=== PATIENT | male | born 1965 | race Caucasian/White ===

== ENCOUNTER 2017-05-19 22:55 | Emergency (ER) | payer MEDICARE ==
[2017-05-19 23:07] VITALS: BP 141/78; PULSE 92; O2SAT 95
[2017-05-19] MEDS ORDERED: CLEOCIN 150 MG CAPSULE PO ONE ×2 (23:15→23:18)
[2017-05-19] MEDS ORDERED: TYLENOL 325 MG PO ONE (23:17)
--- NOTE | 2017-05-19 23:17 | ERPHSYRPT ---
- History of Present Illness Time Seen by Provider: 05/19/17 23:04 Source: patient Exam Limitations: no limitations Patient Subjective Stated Complaint: states having an area to left inner thigh, today worsened and harder to walk Triage Nursing Assessment: area to left inner thigh, swollen, red and painful to walk on it Physician History: PT HAS HAD AN AREA ON THE LEFT UPPER INNER THIGH FOR ABOUT 4 YEARS THAT HAD A SMALL AREA OF EXTRA SKIN WHICH DISAPPEARED. ABOUT 6 HOURS AGO PT NOTICED THE AREA PAINFUL AND MILDLY ERYTHEMATOUS. PT DENIES FEVER, RECENT TRAUMA, NAUSEA, CHILLS. Allergies/Adverse Reactions: No Known Drug Allergies Allergy (Verified 02/06/16 15:47) Home Medications: Aspirin 81 gm Chew [Baby Aspirin 81 mg Chew] 81 mg PO DAILY 09/04/13 [ History] Clopidogrel Bisulfate 75 mg [PLAVIX 75 MG Tablet] 75 mg PO DAILY 09/04/13 [History] Niacin 500 mg [Niaspan 500 mg] 500 mg PO DAILY 09/04/13 [History] Nitroglycerin 0.4 mg Tablet [Nitrostat 0.4 MG Tablet] 0.4 mg SL UD PRN 11/13 [History] Alprazolam [Xanax 0.5 mg] 1 mg PO TID 11/25/13 [History] Simvastatin 40 mg [Zocor 40 mg] 40 mg PO HS 12/10/13 [History] Spironolactone 25 mg [Aldactone 25 MG] 25 mg PO DAILY 12/10/13 [History] Carvedilol [Coreg] 25 mg PO BID 01/21/14 [History] Fenofibrate,Micronized 145 mg* [Tricor 145 MG] 145 mg PO DAILY 01/21/14 [ History] Hydrocodone Bit/Acetaminophen [Hydrocodon-Acetaminoph 7.5-325] 1 tab PO TID 09/15 [History] Lisinopril 10 mg [Zestril 10 MG] 10 mg PO DAILY 11/03/15 [History] Multivitamin/Iron/Folic Acid [Certavite-Antioxidant Tablet] 1 tab PO BID [History] Oxycodone HCl/Acetaminophen [Percocet 7.5-325 mg Tablet] 1 each PO Q6H PRN PRN 02/06/16 [History] Hx Tetanus, Diphtheria Vaccination/Date Given: Yes Hx Influenza Vaccination/Date Given: No Hx Pneumococcal Vaccination/Date Given: No Immunizations Up to Date: Yes - Review of Systems Constitutional: No Fever, No Chills Abdominal/Gastrointestinal: No Nausea Musculoskeletal: Other (PAINFUL AREA ON LEFT UPPER INNER THIGH.) All Other Systems: Reviewed and Negative - Past Medical History Pertinent Past Medical History: Yes Neurological History: No Pertinent History ENT History: No Pertinent History Cardiac History: Congestive Heart Failure, Coronary Artery Disease, Hypertension , Myocardial Infarction ([place]), Other Respiratory History: CHF Endocrine Medical History: No Pertinent History Musculoskeletal History: No Pertinent History GI Medical History: GI Bleed, Pancreatitis History: Dialysis, Renal Disease, Other Psycho-Social History: Anxiety Male Reproductive Disorders: No Pertinent History Other Medical History: stage III kidney disease ;PACEMAKER ET DIFIBRILATOR PLACED IN 2008 - Past Surgical History Past Surgical History: Yes Neuro Surgical History: No Pertinent History Cardiac: Cardiac Catheterization, Internal Defibrillator, Pacemaker Respiratory: No Pertinent History Gastrointestinal: No Pertinent History Genitourinary: No Pertinent History Musculoskeletal: No Pertinent History Male Surgical History: No Pertinent History Other Surgical History: heart cath - Social History Smoking Status: Current every day smoker How long have you smoked: 12 years Exposure to second hand smoke: Yes Alcohol Use: Socially Drug Use: none Patient Lives Alone: No Significant Family History: no pertinent family hx, heart disease - Nursing Vital Signs Nursing Vital Signs: Initial Vital Signs Temperature 98.3 F 05/19/17 23:01 Pulse Rate 92 H 05/19/17 23:01 Respiratory Rate 20 05/19/17 23:01 Blood Pressure 141/78 05/19/17 23:01 O2 Sat by Pulse Oximetry 95 05/19/17 23:01 Pain Scale Pain Intensity 9 - Physical Exam General Appearance: alert Eye Exam: PERRL/EOMI Ears, Nose, Throat Exam: pharynx normal, moist mucous membranes Neck Exam: normal inspection Respiratory Exam: lungs clear Cardiovascular Exam: normal heart sounds Gastrointestinal/Abdomen Exam: soft, normal bowel sounds Male Genitalia Exam: No hernia, No testicular tenderness Back Exam: normal range of motion Extremity Exam: other (~ 2 CM FAINTLY ERYTHEMATOUS MILDLY TENDER AREA OVER LEFT UPPER INNER THIGH WITHOUT FLUCTUATION.), No pedal edema Neurologic Exam: alert, cooperative SpO2 Interpretation: normal SpO2: 95 Oxygen Delivery: Room Air - Course Nursing assessment & vital signs reviewed: Yes Ordered Tests: Medication Summary Discontinued Medications Generic Name Dose Route Start Last Admin Trade Name Beniq PRN Reason Stop Dose Admin Acetaminophen 650 mg 05/19/17 23:17 Tylenol 325 Mg PO 05/19/17 23:18 STAT ONE Clindamycin HCl 300 mg 05/19/17 23:15 Cleocin 150 Mg Capsule PO 05/19/17 23:16 STAT ONE Clindamycin HCl 300 mg 05/19/17 23:18 Cleocin 150 Mg Capsule PO 05/19/17 23:19 STAT ONE - Departure Time of Disposition: 23:34 Departure Disposition: Home Clinical Impression: MILD CELLULITIS OF LEFT THIGH Condition: Stable Critical Care Time: No Referrals: EULALIO ALLRED MD [Primary Care Provider] - Instructions: Cellulitis -- Adult Additional Instructions: FOLLOW UP WITH PRIVATE DOCTOR TOMORROW. Prescriptions: Clindamycin HCl 300 mg PO Q6H #40 capsule
[2017-05-19] MEDS ORDERED: TYLENOL 325 MG ONE (23:22)
[2017-05-19] MEDS ORDERED: CLEOCIN 150 MG CAPSULE ONE (23:22)
== END 2017-05-19 23:47 | disposition home or self-care (01) ==
LOC: ED 22:55
DX: L03.116 Cellulitis of left lower limb (principal); Z79.899 Other long term (current) drug therapy; Z79.891 Long term (current) use of opiate analgesic
CPT/HCPCS: 99283; A9270-GY

== ENCOUNTER 2017-10-03 23:46 | Inpatient (IN) | payer MEDICARE ==
[2017-10-04] MEDS ORDERED: PROTONIX 40 MG IV IV ONE ×2 (00:24→00:39)
--- NOTE | 2017-10-04 00:38 | ERPHSYRPT ---
- History of Present Illness Time Seen by Provider: 10/04/17 00:15 Historian: patient Exam Limitations: clinical condition Patient Subjective Stated Complaint: abdominal pain started 2 days ago.. was drinking over spring. denies n/v/d Triage Nursing Assessment: aleert and oriented. pain in upper abdomen. staes he knows its his pancreas. has been drinking over spring. tender on palpation. denies N/V/D has not been eating food but able to drink fluids. Physician History: PATIENT WITH A HISTORY OF CORONARY ARTERY DISEASE, HYPERTENSION, STAGE 3 RENAL DISEASE, REQUIRING DIALYSIS FOR SHORT PERIOD OF TIME, PACEMAKER, DIFIBRILLATOR , CHRONIC PANCREATITIS, ALCOHOL ABUSE, DRINKING OVER spring AND COMPLAINS OF EPIGASTRIC PAINS FOR 2 DAYS. DENIES NAUSEA, EMESIS,DIARRHEA, FEVER OR COUGH. Timing/Duration: day(s) Activities at Onset: none Quality: sharpness Abdominal Pain Onset Location: epigastric Pain Radiation: back Severity of Pain-Max: moderate Severity of Pain-Current: moderate Modifying Factors: Improves With: position Associated Symptoms: loss of appetite Previous symptoms: same symptoms as today Allergies/Adverse Reactions: No Known Drug Allergies Allergy (Verified 10/04/17 00:22) Home Medications: Aspirin 81 gm Chew [Baby Aspirin 81 mg Chew] 81 mg PO DAILY 09/04/13 [ History] Clopidogrel Bisulfate 75 mg [PLAVIX 75 MG Tablet] 75 mg PO DAILY 09/04/13 [History] Niacin 500 mg [Niaspan 500 mg] 500 mg PO DAILY 09/04/13 [History] Nitroglycerin 0.4 mg Tablet [Nitrostat 0.4 MG Tablet] 0.4 mg SL UD PRN 11/13 [History] Alprazolam [Xanax 0.5 mg] 1 mg PO TID 11/25/13 [History] Simvastatin 40 mg [Zocor 40 mg] 40 mg PO HS 12/10/13 [History] Spironolactone 25 mg [Aldactone 25 MG] 25 mg PO DAILY 12/10/13 [History] Carvedilol [Coreg] 25 mg PO BID 01/21/14 [History] Fenofibrate,Micronized 145 mg* [Tricor 145 MG] 145 mg PO DAILY 01/21/14 [ History] Hydrocodone Bit/Acetaminophen [Hydrocodon-Acetaminoph 7.5-325] 1 tab PO TID 09/15 [History] Lisinopril 10 mg [Zestril 10 MG] 10 mg PO DAILY 11/03/15 [History] Multivitamin/Iron/Folic Acid [Certavite-Antioxidant Tablet] 1 tab PO BID [History] Oxycodone HCl/Acetaminophen [Percocet 7.5-325 mg Tablet] 1 each PO Q6H PRN PRN 02/06/16 [History] Hx Tetanus, Diphtheria Vaccination/Date Given: Yes Hx Influenza Vaccination/Date Given: No Hx Pneumococcal Vaccination/Date Given: No - Review of Systems Constitutional: No Fever, No Chills Eyes: No Symptoms Ears, Nose, & Throat: No Symptoms Respiratory: No Symptoms, No Cough, No Dyspnea Cardiac: No Chest Pain, No Edema, No Syncope Abdominal/Gastrointestinal: Abdominal Pain, No Nausea, No Vomiting, No Diarrhea Genitourinary Symptoms: No Symptoms, No Dysuria Musculoskeletal: No Symptoms, No Back Pain, No Neck Pain Skin: No Rash Neurological: No Dizziness, No Focal Weakness, No Sensory Changes Psychological: No Symptoms Endocrine: No Symptoms All Other Systems: Reviewed and Negative - Past Medical History Pertinent Past Medical History: Yes Neurological History: No Pertinent History ENT History: No Pertinent History Cardiac History: Congestive Heart Failure, Coronary Artery Disease, Hypertension , Myocardial Infarction ([place]), Other Respiratory History: CHF Endocrine Medical History: No Pertinent History Musculoskeletal History: No Pertinent History GI Medical History: GI Bleed, Pancreatitis History: Dialysis, Renal Disease, Other Psycho-Social History: Anxiety Male Reproductive Disorders: No Pertinent History Other Medical History: stage III kidney disease ;PACEMAKER ET DIFIBRILATOR PLACED IN 2008 - Past Surgical History Past Surgical History: Yes Neuro Surgical History: No Pertinent History Cardiac: Cardiac Catheterization, Internal Defibrillator, Pacemaker Respiratory: No Pertinent History Gastrointestinal: No Pertinent History Genitourinary: No Pertinent History Musculoskeletal: No Pertinent History Male Surgical History: No Pertinent History Other Surgical History: heart cath - Social History Smoking Status: Current every day smoker How long have you smoked: 12 years Exposure to second hand smoke: Yes Alcohol Use: Socially Drug Use: none Patient Lives Alone: No Significant Family History: no pertinent family hx, heart disease - Nursing Vital Signs Nursing Vital Signs: Initial Vital Signs Temperature 98.1 F 10/04/17 00:10 Pulse Rate 67 10/04/17 00:10 Respiratory Rate 18 10/04/17 00:10 Blood Pressure 95/69 10/04/17 00:10 O2 Sat by Pulse Oximetry 95 10/04/17 00:10 Pain Scale Pain Intensity 7 - Physical Exam SpO2: 95 Oxygen Delivery: Room Air - CT Exams Abdomen/Pelvis CT Interpretation: Tele-radiologist Report (THERE IS A 2.4CM CYSTIC LESION WITHIN THE PANCREATIC TAIL COULD REPRESENT MASS VS PSEUDOCYST) Ordered Tests: Active Orders 24 hr Category Date Time Status Up Ad Venita ROUTINE Activity 10/04/17 02:59 Ordered Call Admit Doctor for Orders ON ADMISSION Care 10/04/17 02:58 Ordered Code Status Order ROUTINE Care 10/04/17 02:56 Ordered IV Care Q6H Care 10/04/17 02:56 Ordered IV Insertion STAT Care 10/04/17 00:[address] in Observation ROUTINE Care 10/04/17 02:56 Ordered Vital Signs Q4H Care 10/04/17 02:56 Ordered NPO except Meds Diet 10/04/17 02:58 Ordered ABDOMEN AND PELVIS W/0 CONTRAS [CT] Stat Exams 10/04/17 00:25 Taken AMYLASE Stat Lab 10/04/17 00:40 Completed CBC W DIFF Stat Lab 10/04/17 00:40 Completed CMP Stat Lab 10/04/17 00:40 Completed ETHYL ALCOHOL Stat Lab 10/04/17 00:40 Completed LIPASE Stat Lab 10/04/17 00:40 Completed UA W/RFX UR CULTURE Stat Lab 10/04/17 00:40 Completed Urine Triage Profile Stat Lab 10/04/17 00:40 Completed Pulse Oximetry CONTINUOUS RT 10/04/17 02:59 Ordered Transfer Order Routine Transfer 10/04/17 Ordered Medication Summary Generic Name Dose Route Start Last Admin Trade Name Freq PRN Reason Stop Dose Admin Sodium Chloride 1,000 mls @ 100 mls/hr 10/04/17 00:30 10/04/17 00:41 Sodium Chloride 0.9% 1000 Ml IV 11/03/17 00:29 100 mls/hr .Q10H DARREL Administration Discontinued Medications Generic Name Dose Route Start Last Admin Trade Name Freq PRN Reason Stop Dose Admin Morphine Sulfate 8 mg 10/04/17 01:05 10/04/17 01:30 Morphine Sulfate 10 Mg/Ml IV 10/04/17 01:06 8 mg STAT ONE Administration Morphine Sulfate Confirm 10/04/17 01:27 Morphine Sulfate 4 Mg Inj Administered 10/04/17 01:28 Dose 8 mg .ROUTE .STK-MED ONE Ondansetron HCl 4 mg 10/04/17 01:05 10/04/17 01:32 Zofran 4 Mg/2 Ml Vial IV 10/04/17 01:06 4 mg STAT ONE Administration Ondansetron HCl Confirm 10/04/17 01:32 Zofran 4 Mg/2 Ml Vial Administered 10/04/17 01:33 Dose 4 mg .ROUTE .STK-MED ONE Pantoprazole Sodium 40 mg 10/04/17 00:24 10/04/17 00:41 Protonix 40 Mg Iv IV 10/04/17 00:25 40 mg STAT ONE Administration Pantoprazole Sodium Confirm 10/04/17 00:39 Protonix 40 Mg Iv Administered 10/04/17 00:40 Dose 40 mg IV .STK-MED ONE Lab/Rad Data: Laboratory Result Diagrams 10/04/17 00:40 10/04/17 00:40 Laboratory Results 10/04/17 10/04/17 10/04/17 Range/Units 00:40 00:40 00:40 WBC (4.0-10.5) K/mm3 RBC (4.1-5.6) M/mm3 Hgb (12.5-18.0) gm/dl Hct (42-50) % MCV (78-100) fl MCH (26-32) pg MCHC (32-36) g/dl RDW (11.5-14.0) % Plt Count (150-450) K/mm3 MPV (6-9.5) fl Gran % (36.0-66.0) % Eos # (Auto) (0-0.5) Absolute Lymphs (auto) (1.0-4.6) Absolute Monos (auto) (0.0-1.3) Lymphocytes % (24.0-44.0) % Monocytes % (0.0-12.0) % Eosinophils % (0.00-5.0) % Basophils % (0.0-0.4) % Absolute Granulocytes (1.4-6.9) Basophils # (0-0.4) Sodium 138 (137-145) mmol/L Potassium 3.7 (3.5-5.1) mmol/L Chloride 101 (98-107) mmol/L Carbon Dioxide 25 (22-30) mmol/L Anion Gap 15.6 H (5-15) MEQ/L BUN 4 L (9-20) mg/dL Creatinine 0.74 (0.66-1.25) mg/dL Estimated GFR > 60.0 ML/MIN Glucose 146 H (74-106) mg/dL Calcium 9.8 (8.4-10.2) mg/dL Total Bilirubin 0.90 (0.2-1.3) mg/dL AST 26 (17-59) U/L ALT 26 (0-50) U/L Alkaline Phosphatase 83 (38-126) U/L Serum Total Protein 7.9 (6.3-8.2) g/dL Albumin 4.5 (3.5-5.0) g/dL Amylase 55 (30-110) U/L Lipase 43 (23-300) U/L Ur Collection Type CLEAN CATCH Urine Color YELLOW (YELLOW) Urine Appearance CLEAR (CLEAR) Urine pH 5.0 (5-6) Ur Specific [place] 1.010 (1.005-1.025) Urine Protein NEGATIVE (Negative) Urine Ketones NEGATIVE (NEGATIVE) Urine Blood NEGATIVE (0-5) [place]/ul Urine Nitrite NEGATIVE (NEGATIVE) Urine Bilirubin NEGATIVE (NEGATIVE) Urine Urobilinogen NORMAL (0-1) mg/dL Ur Leukocyte Esterase NEGATIVE (NEGATIVE) Urine Culture Reflexed NO (NO) Urine Glucose NEGATIVE (NEGATIVE) mg/dL Urine Opiates Level (NEGATIVE) Ur Methadone (NEGATIVE) Urine Barbiturates (NEGATIVE) Ur Phencyclidine (PCP) (NEGATIVE) Urine Amphetamine (NEGATIVE) U Benzodiazepine Level (NEGATIVE) Urine Cocaine (NEGATIVE) Urine Marijuana (THC) (NEGATIVE) Ethyl Alcohol < 10 H (0-9) mg/dL Specimen Received 10/04/17 0040 10/04/17 10/04/17 Range/Units 00:40 00:40 WBC 8.9 (4.0-10.5) K/mm3 RBC 4.43 (4.1-5.6) M/mm3 Hgb 14.6 (12.5-18.0) gm/dl Hct 43.5 (42-50) % MCV 98.2 (78-100) fl MCH 33.0 H (26-32) pg MCHC 33.6 (32-36) g/dl RDW 12.9 (11.5-14.0) % Plt Count 113 L (150-450) K/mm3 MPV 11.2 H (6-9.5) fl Gran % 61.5 (36.0-66.0) % Eos # (Auto) 0.26 (0-0.5) Absolute Lymphs (auto) 2.13 (1.0-4.6) Absolute Monos (auto) 1.01 (0.0-1.3) Lymphocytes % 23.9 L (24.0-44.0) % Monocytes % 11.3 (0.0-12.0) % Eosinophils % 2.9 (0.00-5.0) % Basophils % 0.4 (0.0-0.4) % Absolute Granulocytes 5.49 (1.4-6.9) Basophils # 0.04 (0-0.4) Sodium (137-145) mmol/L Potassium (3.5-5.1) mmol/L Chloride (98-107) mmol/L Carbon Dioxide (22-30) mmol/L Anion Gap (5-15) MEQ/L BUN (9-20) mg/dL Creatinine (0.66-1.25) mg/dL Estimated GFR ML/MIN Glucose (74-106) mg/dL Calcium (8.4-10.2) mg/dL Total Bilirubin (0.2-1.3) mg/dL AST (17-59) U/L ALT (0-50) U/L Alkaline Phosphatase (38-126) U/L Serum Total Protein (6.3-8.2) g/dL Albumin (3.5-5.0) g/dL Amylase (30-110) U/L Lipase (23-300) U/L Ur Collection Type Urine Color (YELLOW) Urine Appearance (CLEAR) Urine pH (5-6) Ur Specific [place] (1.005-1.025) Urine Protein (Negative) Urine Ketones (NEGATIVE) Urine Blood (0-5) [place]/ul Urine Nitrite (NEGATIVE) Urine Bilirubin (NEGATIVE) Urine Urobilinogen (0-1) mg/dL Ur Leukocyte Esterase (NEGATIVE) Urine Culture Reflexed (NO) Urine Glucose (NEGATIVE) mg/dL Urine Opiates Level POSITIVE (NEGATIVE) Ur Methadone NEGATIVE (NEGATIVE) Urine Barbiturates NEGATIVE (NEGATIVE) Ur Phencyclidine (PCP) NEGATIVE (NEGATIVE) Urine Amphetamine NEGATIVE (NEGATIVE) U Benzodiazepine Level POSITIVE (NEGATIVE) Urine Cocaine NEGATIVE (NEGATIVE) Urine Marijuana (THC) NEGATIVE (NEGATIVE) Ethyl Alcohol (0-9) mg/dL Specimen Received - Progress Progress Note: 10/04/17 00:40 IV NORMAL SALINE 100MG/HR, PROTONIX 40MG IV, ZOFRAN 4MG, MORPHINE 8 MG IV, 10/04/17 02:54 Discussed with : Lenny (DISCUSSED WITH DR ALLRED AT 0245 FOR OBSERVATION) - Departure Time of Disposition: 03:00 Departure Disposition: Observation Clinical Impression: ACUTE EXACERBATION CHRONIC PANCREATITIS Condition: Stable Critical Care Time: No Referrals: EULALIO ALLRED MD [Primary Care Provider] -
[2017-10-04] MEDS: Sodium Chloride 0.9% 1000 ML 1,000 ML IV SCH ×2 (00:41→04:37)
[2017-10-04 00:52] LABS: BASOPHIL % 0.4 % (0.0-0.4); Basophil (Absolute #) 0.04 (0-0.4); Eosinophil % 2.9 % (0.00-5.0); Eosinophil (Absolute #) 0.26 (0-0.5); Granulocyte Absolute (ANC) 5.49 (1.4-6.9); Granulocytes % 61.5 % (36.0-66.0); Hematocrit 43.5 % (42-50); Hemoglobin 14.6 gm/dl (12.5-18.0); Lymphocyte (Absolute #) 2.13 (1.0-4.6); Lymphocytes % 23.9 % (24.0-44.0); Mean Cell Volume 98.2 fl (78-100); Mean Corpuscular Hgb Concent. 33.6 g/dl (32-36); Mean Platelet Volume 11.2 fl (6-9.5); Monocyte (Absolute #) 1.01 (0.0-1.3); Monocytes % 11.3 % (0.0-12.0); Platelet Count 113 K/mm3 (150-450); Red Blood Count 4.43 M/mm3 (4.1-5.6); Red Cell Distribution Width 12.9 % (11.5-14.0); White Blood Count 8.9 K/mm3 (4.0-10.5)
[2017-10-04 00:59] LABS: Appearance CLEAR (CLEAR)
[2017-10-04 01:00] LABS: Bilirubin NEGATIVE (NEGATIVE); Blood NEGATIVE Ery/ul (0-5); Glucose NEGATIVE (NEGATIVE); Ketones NEGATIVE (NEGATIVE); Leukocyte Esterase NEGATIVE (NEGATIVE); Nitrite NEGATIVE (NEGATIVE); Protein,Urine Dip NEGATIVE (Negative); Urobilinogen NORMAL mg/dL (0-1)
[2017-10-04] MEDS ORDERED: MORPHINE SULFATE 10 MG/ML IV ONE (01:05)
[2017-10-04] MEDS ORDERED: Zofran 4 MG/2 ML VIAL IV ONE (01:05)
[2017-10-04 01:09] LABS: ALBUMIN 4.5 g/dL (3.5-5.0); ALKALINE PHOSPHATASE 83 U/L (38-126); AMYLASE 55 U/L (30-110); ANION GAP 15.6 MEQ/L (5-15); BLOOD UREA NITROGEN 4 mg/dL (9-20); CHLORIDE 101 mmol/L (98-107); Calcium 9.8 mg/dL (8.4-10.2); Carbon Dioxide 25 mmol/L (22-30); Creatinine 1 0.74 mg/dL (0.66-1.25); Glucose 146 mg/dL (74-106); LIPASE 43 U/L (23-300); Potassium 3.7 mmol/L (3.5-5.1); SGOT/AST 26 U/L (17-59); SGPT/ALT 26 U/L (0-50); SODIUM 138 mmol/L (137-145); Total Protein 7.9 g/dL (6.3-8.2)
[2017-10-04 01:11] LABS: Amphetamine,Urine NEGATIVE (NEGATIVE); Barbiturate,Urine NEGATIVE (NEGATIVE); Benzodiazepine,Urine POSITIVE (NEGATIVE); Cocaine,Urine NEGATIVE (NEGATIVE); Methadone,Urine NEGATIVE (NEGATIVE); Opiate,Urine POSITIVE (NEGATIVE); PCP,Urine NEGATIVE (NEGATIVE); THC,Urine NEGATIVE (NEGATIVE)
[2017-10-04] MEDS ORDERED: MORPHINE SULFATE 4 MG INJ ONE (01:27)
[2017-10-04] MEDS ORDERED: Zofran 4 MG/2 ML VIAL ONE (01:32)
[2017-10-04] MEDS ORDERED: TYLENOL 325 MG PO PRN (02:56)
[2017-10-04] MEDS ORDERED: Zofran 4 MG/2 ML VIAL IV PRN (02:56)
[2017-10-04] MEDS ORDERED: DILAUDID 2 MG INJECTION IV PRN (02:56)
[2017-10-04] MEDS ORDERED: Nitrostat 0.4 MG Tablet SL PRN (03:01)
[2017-10-04] MEDS ORDERED: NORCO 7.5/325 MG TAB PO PRN (03:06)
--- NOTE | 2017-10-04 09:12 | PCM.HP ---
History of Present Illness - Chief Complaint Chief Complaint: Acute Ex. Chronic Pancreatitis History of Present Illness: is a 52 year old male with recurrent/chronic pancreatitis secondary to alcohol intake. He has been advised to abstain from alcohol and normally does but a week and a half ago was with his uncle and drank alcohol even though he knew he shouldn't. Two night ago he developed familiar sharp stabbing epigastric pain with nausea but no vomiting. He has tried to be on a liquid diet at home but the pain became intolerable, in the ER he has inflammation in the tail of the pancreas with a 2.2cm cyst that is new, enzymes are normal. - Review of Systems Constitutional: No Fever, No Chills Respiratory: No Cough, No Short Of Breath Cardiac: No Chest Pain, No Edema, No Syncope Abdominal/Gastrointestinal: Abdominal Pain, Nausea, No Vomiting, No Hematochezia , No Melena Genitourinary Symptoms: No Dysuria Skin: No Rash Neurological: No Dizziness, No Focal Weakness, No Sensory Changes Psychological: Alcohol Abuse All Other Systems: Reviewed and Negative Medications & Allergies Home Medications: Home Medication List Aspirin 81 gm Chew [Baby Aspirin 81 mg Chew] 81 mg PO DAILY 09/04/13 [ History Confirmed 10/04/17] Clopidogrel Bisulfate 75 mg [PLAVIX 75 MG Tablet] 75 mg PO DAILY 09/04/13 [History Confirmed 10/04/17] Niacin 500 mg [Niaspan 500 mg] 500 mg PO DAILY 09/04/13 [History Confirmed 10/04/17] Nitroglycerin 0.4 mg Tablet [Nitrostat 0.4 MG Tablet] 0.4 mg SL UD PRN 11/13 [History Confirmed 10/04/17] Alprazolam [Xanax 0.5 mg] 1 mg PO TID 11/25/13 [History Confirmed 10/04/17] Simvastatin 40 mg [Zocor 40 mg] 40 mg PO HS 12/10/13 [History Confirmed 10/04/17 ] Spironolactone 25 mg [Aldactone 25 MG] 25 mg PO DAILY 12/10/13 [History Confirmed 10/04/17] Carvedilol [Coreg] 25 mg PO BID 01/21/14 [History Confirmed 10/04/17] Fenofibrate,Micronized 145 mg* [Tricor 145 MG] 145 mg PO DAILY 01/21/14 [ History Confirmed 10/04/17] Hydrocodone Bit/Acetaminophen [Hydrocodon-Acetaminoph 7.5-325] 1 tab PO TID 09/15 [History Confirmed 10/04/17] Lisinopril 10 mg [Zestril 10 MG] 10 mg PO DAILY 11/03/15 [History Confirmed 10/04/17] Multivitamin/Iron/Folic Acid [Certavite-Antioxidant Tablet] 1 tab PO BID [History Confirmed 10/04/17] Gabapentin [Neurontin] 300 mg PO TID 10/04/17 [History Confirmed 10/04/17] Allergies/Adverse Reactions: Allergies Allergy/AdvReac Type Severity Reaction Status Date / Time No Known Drug Allergies Allergy Verified 10/04/17 00:22 - Past Medical History Past Medical History: Yes Neurological History: No Pertinent History ENT History: No Pertinent History Cardiac History: Congestive Heart Failure, Coronary Artery Disease, Hypertension , Myocardial Infarction ([place]), Other Respiratory History: CHF Endocrine Medical History: No Pertinent History Musculoskelatal History: No Pertinent History GI Medical History: GI Bleed, Pancreatitis History: Dialysis, Renal Disease, Other Pyscho-Social History: Anxiety Male Reproductive Disorders: No Pertinent History Comment: stage III kidney disease ;PACEMAKER ET DIFIBRILATOR PLACED IN 2008 - updated 2017 - Past Surgical History Past Surgical History: Yes Neuro Surgical History: No Pertinent History Cardiac History: Cardiac Catheterization, Internal Defibrillator, Pacemaker Respiratory Surgery: No Pertinent History GI Surgical History: No Pertinent History Genitourinary Surgical Hx: No Pertinent History Musculskeletal Surgical Hx: No Pertinent History Male Surgical History: No Pertinent History Other Surgical History: heart cath x 2 - Social History Smoking Status: Current every day smoker How long have you smoked: 12 years Exposure to second hand smoke: Yes Alcohol: None Drug Use: none Significant Family History: no pertinent family hx, heart disease - Physical Exam Vital Signs: Vital Signs - 24 hr Temp Pulse Resp BP Pulse Ox 10/04/17 07:15 97.8 F 68 18 110/56 97 10/04/17 04:00 18 10/04/17 03:58 97.8 F 71 18 109/60 95 04/04/18 03:08 95 10/04/17 01:54 68 14 103/51 95 10/04/17 00:10 98.1 F 67 18 95/69 95 General Appearance: mild distress, alert Neurologic Exam: alert, oriented x 3 Eye Exam: PERRL/EOMI, eyes nml inspection Respiratory Exam: normal breath sounds, lungs clear, No respiratory distress Cardiovascular Exam: regular rate/rhythm, normal heart sounds, normal peripheral pulses Gastrointestinal/Abdomen Exam: soft, tenderness (epigastrium) Extremity Exam: normal inspection, normal range of motion, pelvis stable Skin Exam: normal color, warm, dry, No rash Assessment/Plan (1) Acute alcoholic pancreatitis Current Visit: No Status: Acute Assessment & Plan: keep npo, hydrate and put on dilaudid ORTHOPEDIC PHYSICAL THERAPIST. antiemetics are ordered prn. discussed again the need for complete avoidance of alcohol and [facility]o understands this and has been advised of this before. will need f/u on cyst Code(s): K85.2 - ALCOHOL INDUCED ACUTE PANCREATITIS * DO NOT USE * (2) Chronic pancreatitis due to acute alcohol intoxication Current Visit: Yes Status: Acute Code(s): K86.0 - ALCOHOL-INDUCED CHRONIC PANCREATITIS (3) Coronary artery disease Current Visit: No Status: Chronic Code(s): I25.10 - ATHSCL HEART DISEASE OF [place] CORONARY ARTERY W/O ANG PCTRS (4) Pancreatic cyst Current Visit: Yes Status: Acute Code(s): K86.2 - CYST OF PANCREAS
--- NOTE | 2017-10-04 09:13 | XRAY ---
Indication: Abdominal pain. Chronic pancreatitis. Multiple contiguous axial images obtained through the abdomen and pelvis without contrast as ordered. Comparison: April 16, 2014. Lung bases again demonstrates mild bibasilar dependent atelectasis and right posterior gutter calcified granuloma. No infiltrate or effusion. Heart is not enlarged. New small hiatal hernia. Left upper quadrant demonstrates new focus of moderate mesenteric stranding including adjacent stomach, tail of the pancreas, and splenic flexure of the colon suggesting underlying inflammation either gastritis, pancreatitis, or colitis. Small pelvic free fluid. No free air. New 2.6 cm pancreatic body cystic mass versus pseudocyst. A few pancreatic calcifications presumed relating to chronic pancreatitis. Noncontrasted stomach and bowel loops appear nonobstructed. Normal appendix. Again mild sigmoid diverticulosis without diverticulitis. Again mild fatty liver and 13.8 cm splenomegaly. Remaining liver, gallbladder, spleen, adrenal glands, kidneys, ureters, and bladder appear unremarkable for noncontrast exam. Mild aortoiliac calcifications without AAA. Osseous structures intact again with lumbosacral junction degenerative disc disease. Impression: 1. New left upper quadrant stranding including stomach, pancreas, and:. Rule out gastritis, colitis, or pancreatitis. Small pelvic free fluid presumed reactive. 2. New pancreatic cystic mass versus pseudocyst. 3. New small hiatal hernia and chronic pancreatitis calcifications. 4. Again incidental sigmoid diverticulosis, fatty liver, and splenomegaly. Comment: Preliminary interpretation was made by [facility]. No critical discrepancy. CT DI 19.99
[2017-10-04] MEDS: DILAUDID 1 MG/1ML PCA IV PRN (09:27)
[2017-10-04] MEDS: XANAX 1 MG PO SCH ×3 (09:44→22:10)
[2017-10-04] MEDS: NEURONTIN 300 MG PO SCH ×3 (09:44→22:10)
[2017-10-04] MEDS: ECOTRIN 81 MG PO SCH (09:44)
[2017-10-04] MEDS: PLAVIX 75 MG Tablet PO SCH (09:44)
[2017-10-04] MEDS: ENOXAPARIN SODIUM SQ SCH (09:46)
[2017-10-04] MEDS: Sodium Chloride 0.9% W/ 20 mEq KCl/LITER 1,000 ML IV SCH ×2 (09:49→18:13)
[2017-10-04] MEDS ORDERED: COREG 12.5 MG PO SCH ×2 (10:00)
[2017-10-04] MEDS ORDERED: NON-FORMULARY ITEM (Carvedilol [Coreg] 25 MG) PO SCH ×2 (10:00)
[2017-10-04] MEDS ORDERED: BABY ASPIRIN 81 MG CHEW PO SCH (10:00)
[2017-10-04] MEDS ORDERED: xanAX 0.5 MG PO SCH ×2 (10:00)
[2017-10-04] MEDS ORDERED: Zestril 10 MG PO SCH (10:00)
[2017-10-04] MEDS: NICODERM CQ 14 MG TOP SCH (15:15)
[2017-10-04] MEDS ORDERED: Zetia 10 MG** 10 MG, ZOCOR 20MG** 40 MG PO SCH ×2 (22:00)
[2017-10-04] MEDS: PROTONIX 40 MG IV IV SCH (22:10)
[2017-10-05] MEDS: Sodium Chloride 0.9% W/ 20 mEq KCl/LITER 1,000 ML IV SCH ×2 (02:37→18:50)
[2017-10-05] MEDS: DILAUDID 1 MG/1ML PCA IV PRN (05:08)
[2017-10-05 05:51] LABS: BASOPHIL % 0.3 % (0.0-0.4); Basophil (Absolute #) 0.03 (0-0.4); Eosinophil % 2.6 % (0.00-5.0); Eosinophil (Absolute #) 0.25 (0-0.5); Granulocyte Absolute (ANC) 6.13 (1.4-6.9); Granulocytes % 64.7 % (36.0-66.0); Hematocrit 39.5 % (42-50); Hemoglobin 13.1 gm/dl (12.5-18.0); Lymphocyte (Absolute #) 1.94 (1.0-4.6); Lymphocytes % 20.5 % (24.0-44.0); Mean Cell Volume 100.8 fl (78-100); Mean Corpuscular Hemoglobin 33.4 pg (26-32); Mean Corpuscular Hgb Concent. 33.2 g/dl (32-36); Monocyte (Absolute #) 1.13 (0.0-1.3); Monocytes % 11.9 % (0.0-12.0); Platelet Count 116 K/mm3 (150-450); Red Blood Count 3.92 M/mm3 (4.1-5.6); Red Cell Distribution Width 12.5 % (11.5-14.0); White Blood Count 9.5 K/mm3 (4.0-10.5)
[2017-10-05 05:57] LABS: ALBUMIN 3.7 g/dL (3.5-5.0); ALKALINE PHOSPHATASE 83 U/L (38-126); AMYLASE 58 U/L (30-110); ANION GAP 12.6 MEQ/L (5-15); BLOOD UREA NITROGEN 5 mg/dL (9-20); CHLORIDE 101 mmol/L (98-107); Calcium 9.2 mg/dL (8.4-10.2); Carbon Dioxide 26 mmol/L (22-30); Creatinine 1 0.79 mg/dL (0.66-1.25); Glucose 95 mg/dL (74-106); LIPASE 69 U/L (23-300); Potassium 4.7 mmol/L (3.5-5.1); SGOT/AST 24 U/L (17-59); SGPT/ALT 18 U/L (0-50); SODIUM 135 mmol/L (137-145); Total Protein 6.8 g/dL (6.3-8.2)
--- NOTE | 2017-10-05 08:28 | PCM.NOTE ---
Date and Time: 10/05/17826 Subjective Assessment: pain improved at this time, still has some discomfort but much less. feels very hungry Objective Exam General Appearance: no apparent distress, alert Respiratory Exam: normal breath sounds, lungs clear, No respiratory distress Cardiovascular Exam: regular rate/rhythm, normal heart sounds Gastrointestinal/Abdomen Exam: soft, No tenderness, No mass Extremity Exam: normal inspection, normal range of motion OBJECTIVE DATA Vital Signs: Vital Signs - 24 hr Temp Pulse Resp BP Pulse Ox 10/05/17 07:33 98.1 F 76 18 90/52 93 L 10/05/17 06:00 97 10/05/17 05:08 97 10/05/17 04:00 99.9 F 86 16 126/59 97 10/05/17 02:00 97 10/05/17 00:05 99.0 F 84 16 124/59 96 10/05/17 00:00 16 10/04/17 22:00 96 10/04/17 20:15 97.7 F 78 16 94/55 95 10/04/17 20:00 16 10/04/17 18:00 95 10/04/17 15:49 98 F 70 18 96/54 10/04/17 12:55 67 89/52 10/04/17 12:34 97.9 F 62 20 90/55 95 10/04/17 09:27 97 Pain Assessment - Last Documented Pain Intensity 3 Pain Scale Used 0-10 Pain Scale Intake and Output: Intake & Output 10/02/17 10/03/17 10/04/17 10/05/17 11:59 11:59 11:59 11:59 Intake Total 0 1553 Output Total 600 Balance 0 953 Lab Results: Lab Results-Last 24 Hours 10/05/17 10/05/17 Range/Units 05:07 05:07 WBC 9.5 (4.0-10.5) K/mm3 RBC 3.92 L (4.1-5.6) M/mm3 Hgb 13.1 (12.5-18.0) gm/dl Hct 39.5 L (42-50) % MCV 100.8 H (78-100) fl MCH 33.4 H (26-32) pg MCHC 33.2 (32-36) g/dl RDW 12.5 (11.5-14.0) % Plt Count 116 L (150-450) K/mm3 MPV 11.0 H (6-9.5) fl Gran % 64.7 (36.0-66.0) % Eos # (Auto) 0.25 (0-0.5) Absolute Lymphs (auto) 1.94 (1.0-4.6) Absolute Monos (auto) 1.13 (0.0-1.3) Lymphocytes % 20.5 L (24.0-44.0) % Monocytes % 11.9 (0.0-12.0) % Eosinophils % 2.6 (0.00-5.0) % Basophils % 0.3 (0.0-0.4) % Absolute Granulocytes 6.13 (1.4-6.9) Basophils # 0.03 (0-0.4) Sodium 135 L (137-145) mmol/L Potassium 4.7 (3.5-5.1) mmol/L Chloride 101 (98-107) mmol/L Carbon Dioxide 26 (22-30) mmol/L Anion Gap 12.6 (5-15) MEQ/L BUN 5 L (9-20) mg/dL Creatinine 0.79 (0.66-1.25) mg/dL Estimated GFR > 60.0 ML/MIN Glucose 95 (74-106) mg/dL Calcium 9.2 (8.4-10.2) mg/dL Total Bilirubin 0.90 (0.2-1.3) mg/dL AST 24 (17-59) U/L ALT 18 (0-50) U/L Alkaline Phosphatase 83 (38-126) U/L Serum Total Protein 6.8 (6.3-8.2) g/dL Albumin 3.7 (3.5-5.0) g/dL Amylase 58 (30-110) U/L Lipase 69 (23-300) U/L Assessment/Plan (1) Acute alcoholic pancreatitis Current Visit: Yes Status: Acute Onset Date: ~10/04/17 Assessment & Plan: much less tender today, enzymes still look good. will start clear liquids and advance as tolerated. Code(s): K85.2 - ALCOHOL INDUCED ACUTE PANCREATITIS * DO NOT USE * (2) Chronic pancreatitis due to acute alcohol intoxication Current Visit: Yes Status: Acute Onset Date: ~10/04/17 Code(s): K86.0 - ALCOHOL-INDUCED CHRONIC PANCREATITIS (3) Coronary artery disease Current Visit: No Status: Chronic Code(s): I25.10 - ATHSCL HEART DISEASE OF [place] CORONARY ARTERY W/O ANG PCTRS (4) Pancreatic cyst Current Visit: Yes Status: Acute Onset Date: ~10/04/17 Code(s): K86.2 - CYST OF PANCREAS
[2017-10-05] MEDS: PLAVIX 75 MG Tablet PO SCH (09:19)
[2017-10-05] MEDS: ENOXAPARIN SODIUM SQ SCH (09:20)
[2017-10-05] MEDS: XANAX 1 MG PO SCH ×3 (09:20→21:26)
[2017-10-05] MEDS: NEURONTIN 300 MG PO SCH ×3 (09:20→21:26)
[2017-10-05] MEDS: ECOTRIN 81 MG PO SCH (09:20)
[2017-10-05] MEDS: NICODERM CQ 14 MG TOP SCH (15:01)
[2017-10-05] MEDS: PROTONIX 40 MG IV IV SCH (21:26)
[2017-10-06] MEDS: Sodium Chloride 0.9% W/ 20 mEq KCl/LITER 1,000 ML IV SCH ×2 (03:10→11:07)
--- NOTE | 2017-10-06 08:31 | PCM.DS ---
Discharge Summary Date of Admission: 10/04/17 09:08 Admitting Physician: EULALIO ALLRED Primary Care Provider: EULALIO ALLRED Allergies Allergies No Known Drug Allergies Allergy (Verified 10/04/17 00:22) Hospital Summary - Hospital Course Hospital Course: patient admitted with acute exacerbation of chronic pancreatitis, has normal enzymes on labs but ct showed new small cyst on pancreas with inflammation. patient continues to drink alcohol in spite of recurrent pancreatitis - Vitals & Intake/Output Vital Signs: Vital Signs Temperature 97.8 F 10/06/17 04:20 Pulse Rate 73 10/06/17 04:20 Respiratory Rate 16 10/06/17 04:20 Blood Pressure 137/60 10/06/17 04:20 O2 Sat by Pulse Oximetry 98 10/06/17 06:00 Intake & Output: Intake & Output 10/03/17 10/04/17 10/05/17 10/06/17 11:59 11:59 11:59 11:59 Intake Total 0 2093 6422 Output Total 600 Balance 0 1493 6422 - Lab Result Diagrams: 10/05/17 05:07 10/05/17 05:07 Discharge Exam General Appearance: no apparent distress, alert Respiratory Exam: normal breath sounds, lungs clear, No respiratory distress Cardiovascular Exam: regular rate/rhythm, normal heart sounds Gastrointestinal/Abdomen Exam: soft, No tenderness, No mass Extremity Exam: normal inspection, normal range of motion Final Diagnosis/Problem List - Final Discharge Diagnosis/Problem (1) Acute alcoholic pancreatitis Current Visit: Yes Status: Acute Onset Date: ~10/04/17 Assessment & Plan: clinically improved, tolerating regular diet and pain has improved dramatically (2) Chronic pancreatitis due to acute alcohol intoxication Current Visit: Yes Status: Acute Onset Date: ~10/04/17 (3) Coronary artery disease Current Visit: No Status: Chronic (4) Pancreatic cyst Current Visit: Yes Status: Acute Onset Date: ~10/04/17 - Discharge Disposition: Home, Self-Care Condition: Stable Prescriptions: Continue Nitroglycerin 0.4 mg Tablet [Nitrostat 0.4 MG Tablet] 0.4 mg SL UD PRN PRN Reason: Chest Pain Niacin 500 mg [Niaspan 500 mg] 500 mg PO DAILY Clopidogrel Bisulfate 75 mg [PLAVIX 75 MG Tablet] 75 mg PO DAILY Aspirin 81 gm Chew [Baby Aspirin 81 mg Chew] 81 mg PO DAILY Alprazolam [Xanax 0.5 mg] 1 mg PO TID Spironolactone 25 mg [Aldactone 25 MG] 25 mg PO DAILY Simvastatin 40 mg [Zocor 40 mg] 40 mg PO HS Carvedilol [Coreg] 25 mg PO BID Fenofibrate,Micronized 145 mg* [Tricor 145 MG] 145 mg PO DAILY Multivitamin/Iron/Folic Acid [Certavite-Antioxidant Tablet] 1 tab PO BID Lisinopril 10 mg [Zestril 10 MG] 10 mg PO DAILY Hydrocodone Bit/Acetaminophen [Hydrocodon-Acetaminoph 7.5-325] 1 tab PO TID Gabapentin [Neurontin] 300 mg PO TID Follow up with: EULALIO ALLRED MD [Primary Care Provider] - 1 Week
[2017-10-06] MEDS: NEURONTIN 300 MG PO SCH (09:29)
[2017-10-06] MEDS: PLAVIX 75 MG Tablet PO SCH (09:29)
[2017-10-06] MEDS: XANAX 1 MG PO SCH (09:29)
[2017-10-06] MEDS: ECOTRIN 81 MG PO SCH (09:29)
[2017-10-06] MEDS: ENOXAPARIN SODIUM SQ SCH (09:30)
[2017-10-06 11:39] VITALS: BP 112/55; PULSE 76
[2017-10-06 13:35] VITALS: O2SAT 97
== END 2017-10-06 13:20 | disposition home or self-care (01) | DRG 439 ==
LOC: ED 23:46 → MED SURG 10-04 03:37 → OBSVTOIN 10-04 09:08
PROVIDERS: ADMIT Family Medicine; ATTEND Family Medicine
DX: K85.90 Acute pancreatitis without necrosis or infection, unspecified (principal); K85.20 Alcohol induced acute pancreatitis without necrosis or infection; K86.2 Cyst of pancreas; Z99.2 Dependence on renal dialysis; K86.0 Alcohol-induced chronic pancreatitis; I10 Essential (primary) hypertension; I25.10 Atherosclerotic heart disease of native coronary artery without angina pectoris; I50.9 Heart failure, unspecified; F10.10 Alcohol abuse, uncomplicated; Z72.0 Tobacco use; Z79.899 Other long term (current) drug therapy; I12.9 Hypertensive chronic kidney disease with stage 1 through stage 4 chronic kidney disease, or unspecified chronic kidney disease; N18.3 Chronic kidney disease, stage 3 (moderate); I25.2 Old myocardial infarction; F41.9 Anxiety disorder, unspecified; N28.9 Disorder of kidney and ureter, unspecified; Z95.810 Presence of automatic (implantable) cardiac defibrillator
CPT/HCPCS: 36000; 36415; 74176; 80053; 80302; 80307; 81002; 82150; 83690; 85025; 96374; 99285; J1170; J1650; J2270; J2405; A9270-GY; G0480

== ENCOUNTER 2020-02-10 08:24 | Day surgery (SDC) | payer MEDICARE ==
[2020-02-10] MEDS ORDERED: DIPRIVAN 200 MG/20 ML IV ONE (08:25)
[2020-02-10] MEDS ORDERED: Lactated Ringers 1,000 ML IV SCH (09:00)
[2020-02-10] MEDS ORDERED: Lactated Ringers 1,000 ML IV ONE ×2 (09:03→11:08)
--- NOTE | 2020-02-10 09:10 | HP ---
DATE OF SURGERY: 02/10/2020 HISTORY OF PRESENT ILLNESS: The patient is a 54 year old who has had some problems with dysphagia over the past four or five month's worse now upper esophagus. Worse with meats. It feels like it wants to come up to upper esophagus when he eats. Otherwise family history negative for esophageal cancer. He had been on some thinners in the past. He had a pacemaker defibrillator in the past. Given his dysphagia he is in need of upper endoscopy possible dilatation. PAST MEDICAL HISTORY: Stage III chronic renal disease. Chronic low back pain. History of pancreatitis in the past. History of neuropathy in the past. Hypertriglycemia. History of anxiety in the past. History of alcohol abuse in the past. Hypertension. Coronary arthrosclerosis. Cardiomyopathy. History of alcohol abuse with pancreatitis in the past. Chronic obstructive pulmonary disease. PAST SURGICAL HISTORY: Pacemaker defibrillator in the past. ICD in the past. Colonoscopy in the past. MEDICATIONS: Albuterol sulfate, alprazolam, aspirin, bupropion, carvedilol, cephalexin, Cerovite Advanced Formula, clopidogrel, fenofibrate, gabapentin, hydrocodone, Lisinopril, Niacin Extended Release, nitroglycerin sublingual, Pantoprazole, ProAir HFA, Spironolactone. ALLERGIES: IODINATED CONTRAST MEDIA. ETODOLAC. GADOPENTETIC ACID. FAMILY HISTORY: Negative for esophageal cancer. SOCIAL HISTORY: Smoker. History of alcohol abuse in the past. REVIEW OF SYSTEMS: Fourteen systems reviewed. No chest pain or palpitations. Other systems negative or noncontributory as above and per preadmission questionnaire. PHYSICAL EXAMINATION: GENERAL: No acute distress. HEENT: Sclerae nonicteric. NECK: No JVD. CHEST: Equal breath sounds, audible wheeze currently. CVS: Regular rate and rhythm. ABDOMEN: Soft. No peritoneal signs. EXTREMITIES: No edema. No cyanosis. NEURO: Alert, oriented, moving extremities symmetrically. PSYCH: Appropriate mood and affect. IMPRESSION: Dysphagia. He is in need of EGD possible biopsy, possible dilatation. Risks and benefits explained in detail including but not limited to bleeding or infection, risk of bowel injury or perforation possibly requiring open procedure, risk of missed or nondiagnosis or incomplete exam possibly requiring barium swallow, other studies or procedures. Possibility of risk of perforation possibly requiring open procedure, ongoing morbidity/mortality possibly requiring other open procedures or transfer for stent placement, general risk of anesthesia, risk of deep venous thrombosis, pulmonary embolism, pneumonia, possibility this may fail to improve his swallowing and may need other studies and/or procedures or referrals. If dilatation improves his swallowing may need to be repeated down the road. He understands and agrees to the planned procedure, will proceed with EGD with possible biopsy, possible dilatation as an outpatient.
[2020-02-10 11:33] VITALS: O2SAT 94
[2020-02-10 11:38] VITALS: BP 127/67; PULSE 77
--- NOTE | 2020-02-10 15:47 | OP ---
SURGERY DATE/TIME: 02/10/2020 1028 PREOPERATIVE DIAGNOSIS: Dysphagia. POSTOPERATIVE DIAGNOSES: 1) Minimal gastritis. 2) Short segment possible early distal gastroesophagitis. 3) Proximal esophageal narrowing and spasm requiring dilatation. PROCEDURES: 1) EGD with cold biopsy of antrum for Helicobacter pylori for HECTOR-test. 2) Cold biopsy of the distal esophagus to evaluate for esophagitis. 3) Proximal esophageal balloon dilatation (size 20 balloon dilator). SURGEON: Dr. Lamonte Fajardo. ANESTHESIA: MAC. ESTIMATED BLOOD LOSS: Minimal. INDICATIONS: As noted above. Risks and benefits explained in detail and not limited to and consent obtained. DESCRIPTION OF PROCEDURE AND FINDINGS: The patient is taken to the endoscopy room. MAC anesthesia introduced. After official time out and no disagreement with planned procedure, bite block positioned. Video gastroscope passed down the proximal esophagus. The scope was able to just pass through here with narrowed area and some spasm. There was no obvious mass or lesion to biopsy. As he is having symptoms here, it was this warranted dilatation. Scope was then passed through the gastroesophageal junction through the patent pylorus to the junction of the second and third portion of the duodenum. Proximal duodenum grossly unremarkable. No signs of any obvious ulcers or masses. The scope pulled back in. There is some slight erythema in the stomach. Cold biopsy taken to evaluate for HECTOR-test. Good hemostasis noted. There were no signs of any obvious ulcers, masses or mucosal lesions. On retroflex the gastroesophageal junction seemed to be fairly snug against the scope. No signs of any significant hiatal hernia. The scope is straightened. Gastroesophageal junction was about 40 cm. He had a short segment of a couple of millimeters of possible early distal esophagitis. Cold biopsy taken to evaluate for esophagitis, Mansfield's changes. Cold biopsy taken of this area. Good hemostasis noted. Scope pulled up the proximal esophagus. Again symptomatic proximal esophageal narrowing and spasm. There was no mass to biopsy. It was felt this warranted dilatation given his symptoms. The scope is passed back down the stomach. A 20 balloon dilator carefully inserted and then pulled back up to the proximal esophageal narrowed area and the balloon carefully inflated three stages. First stage size 18 for 45 seconds, second stage size 19 for 45 seconds and final stage size 20 balloon dilator for two minutes and then released. He started coughing a little bit the last 10 seconds of dilatation. Otherwise he tolerated the procedure well. The balloon had been decompressed and the balloon catheter withdrawn. The scope much more easily passed through this area post-dilatation. There is minimal superficial abrasion of the mucosa. No signs of any full thickness issues or injury. The scope is withdrawn. Patient tolerated the procedure well. Findings were discussed with the family out in the waiting area.
[2020-02-10] MEDS ORDERED: Ketamine HCl 50 MG/ML ONE (16:15)
== END 2020-02-10 11:44 | disposition home or self-care (01) ==
LOC: SDC 08:24
PROVIDERS: ATTEND Surgery
DX: K22.2 Esophageal obstruction (principal); K22.4 Dyskinesia of esophagus; K29.70 Gastritis, unspecified, without bleeding; K20.9 Esophagitis, unspecified; Z79.899 Other long term (current) drug therapy; I10 Essential (primary) hypertension
CPT/HCPCS: 87081; C1726; J2704

== ENCOUNTER 2021-08-17 12:00 | Emergency (ER) | payer MEDICARE ==
[2021-08-17] MEDS ORDERED: Zofran 4 MG/2 ML VIAL IV ONE (12:28)
[2021-08-17] MEDS ORDERED: MORPHINE SULFATE 4 MG INJ IV ONE (12:28)
[2021-08-17] MEDS ORDERED: Zofran 4 MG/2 ML VIAL ONE (12:31)
[2021-08-17] MEDS ORDERED: MORPHINE SULFATE 4 MG INJ ONE (12:31)
--- NOTE | 2021-08-17 13:06 | XRAY ---
Indication: Right rib pain. No known injury. Comparison: None 2 view right ribs demonstrates nondisplaced healing anterolateral 8 rib fracture and partially visualized left AICD. No other bony, articular, or soft tissue abnormalities.
--- NOTE | 2021-08-17 13:08 | XRAY ---
Indication: Right rib pain. No known injury. Comparison: January 27, 2020. Portable chest again demonstrates normal heart and lungs with left AICD. Bony thorax demonstrates new healing nondisplaced right 8 rib fracture.
--- NOTE | 2021-08-17 13:17 | ERPHSYRPT ---
- History of Present Illness Time Seen by Provider: 08/17/21 12:27 Historian: patient Exam Limitations: no limitations Patient Subjective Stated Complaint: Pt states "I am having pain in my right side. It hurts to move and it hurts when I breath in. I have stage 3 renal d isease and pancreatitis." Triage Nursing Assessment: Pt presented alert and oriented X 3, skin pwd. Pt ambulates with an upright steady gait, able to speak in clear full setences. Pt will grasp his right side every now and then when he moves and grunt. Physician History: 56-year-old male with multiple medical problems including congestive heart f ailure status post pacemaker/defibrillator implant, alcohol abuse, chronic pain presented in the ER with chief complaint of right lateral chest wall sharp pain since yesterday afternoon. Patient denies any fall or trauma. Reports pain at the specific spot with movement and taking a deep breath. Pain is moderate intensity with movements and palpation/deep breathing and better with resting. Denies any difficulty breathing. No abdominal pain nausea or vomiting. Nitro Today/Relief: no nitro taken today Aspirin Treatment Today: 81 mg x 1 Allergies/Adverse Reactions: etodolac Allergy (Verified 02/10/20 08:44) gadopentetic acid [From Magnevist] Allergy (Verified 02/10/20 08:44) Iodinated Contrast Media Allergy (Verified 02/10/20 08:44) Home Medications: ALPRAZolam [Alprazolam] 1 mg PO TID 01/28/20 [History] Fenofibrate,Micronized 145 mg* [Tricor 145 MG] 145 mg PO DAILY 01/28/20 [History] Hydrocodone/Acetaminophen [Hydrocodon-Acetaminoph 7.5-325] 7.5 mg PO UD 01/28/20 [History] Lisinopril 10 mg [Zestril 10 MG] 10 mg PO DAILY 01/28/20 [History] Multivit with Minerals/Lutein [Cerovite Senior Tablet] 1 each PO DAILY 01/28/20 [History] Niacin [Niacin ER] 1,000 mg PO HS 01/28/20 [History] Pantoprazole Sodium [Protonix] 40 mg PO DAILY 01/28/20 [History] Spironolactone 25 mg [Aldactone 25 MG] 25 mg PO DAILY 01/28/20 [History] carvediloL [Carvedilol] 25 mg PO BID 01/28/20 [History] Hx Tetanus, Diphtheria Vaccination/Date Given: Yes Hx Influenza Vaccination/Date Given: No Hx Pneumococcal Vaccination/Date Given: No Immunizations Up to Date: Yes Travel Risk - International Travel Have you traveled outside of the country in past 3 weeks: No - Coronavirus Screening Are you exhibiting any of the following symptoms?: No Close contact with a COVID-19 positive Pt in past 14-21 Days: No - Vaccine Status Have you recieved a Covid-19 vaccination: No - Review of Systems Constitutional: No Symptoms Eyes: No Symptoms Ears, Nose, & Throat: No Symptoms Respiratory: No Symptoms Cardiac: Chest Pain Abdominal/Gastrointestinal: No Symptoms Genitourinary Symptoms: No Symptoms Skin: No Symptoms Neurological: No Symptoms Hematologic/Lymphatic: No Symptoms Immunological/Allergic: No Symptoms - Past Medical History Pertinent Past Medical History: Yes Neurological History: No Pertinent History ENT History: No Pertinent History Cardiac History: Congestive Heart Failure, Coronary Artery Disease, Hypertension, Myocardial Infarction (ME), Other Respiratory History: CHF Endocrine Medical History: No Pertinent History Musculoskeletal History: No Pertinent History GI Medical History: GI Bleed, Pancreatitis History: Dialysis, Renal Disease, Other Psycho-Social History: Anxiety Male Reproductive Disorders: No Pertinent History Other Medical History: stage III kidney disease ;PACEMAKER ET DIFIBRILATOR PLACED IN 2008 - updated 2017 - Past Surgical History Past Surgical History: Yes Neuro Surgical History: No Pertinent History Cardiac: Cardiac Catheterization, Internal Defibrillator, Pacemaker Respiratory: No Pertinent History Gastrointestinal: No Pertinent History Genitourinary: No Pertinent History Musculoskeletal: No Pertinent History Male Surgical History: No Pertinent History Other Surgical History: heart cath x 2 - Social History Smoking Status: Current every day smoker How long have you smoked: years Exposure to second hand smoke: Yes Alcohol Use: Socially Drug Use: none Patient Lives Alone: No Significant Family History: no pertinent family hx, heart disease - Nursing Vital Signs Nursing Vital Signs: Initial Vital Signs Temperature 98.1 F 08/17/21 12:04 Pulse Rate 88 08/17/21 12:04 Respiratory Rate 18 08/17/21 12:04 Blood Pressure 163/101 08/17/21 12:04 O2 Sat by Pulse Oximetry 96 08/17/21 12:04 Pain Scale Pain Intensity 8 - Physical Exam General Appearance: no apparent distress, alert Eye Exam: PERRL/EOMI, eyes nml inspection Ears, Nose, Throat Exam: normal ENT inspection, pharynx normal, moist mucous membranes Neck Exam: normal inspection, non-tender, supple, carotid bruit Respiratory Exam: normal breath sounds, chest tenderness (Right lateral mid to lower chest wall 4 cm area of tenderness. No crepitus. No tenderness above or below the area), lungs clear Cardiovascular Exam: regular rate/rhythm, normal heart sounds Gastrointestinal/Abdomen Exam: soft, normal bowel sounds, No tenderness Back Exam: normal inspection Extremity Exam: normal inspection, normal range of motion Neurologic Exam: alert, oriented x 3, cooperative Skin Exam: normal color SpO2 Interpretation: normal SpO2: 96 O2 Delivery: Room Air - Course EKG Interpreted by Me: RATE (91), Sinus Rhythm, NORMAL AXIS, NORMAL INTERVALS, NORMAL QRS Ordered Tests: Active Orders 24 hr Category Date Time Status CHEST 1 VIEW (PORTABLE) Stat Exams 08/17/21 12:28 Completed RIBS UNILATERAL Stat Exams 08/17/21 12:53 Completed Medication Summary Discontinued Medications Generic Name Dose Route Start Last Admin Trade Name Gina PRN Reason Stop Dose Admin Morphine Sulfate 4 mg 08/17/21 12:28 08/17/21 12:33 Morphine Sulfate 4 Mg/Ml Injection IV 08/17/21 12:29 4 mg STAT ONE Administration Morphine Sulfate Confirm 08/17/21 12:31 Morphine Sulfate 4 Mg/Ml Injection Administered 08/17/21 12:32 Dose 4 mg .ROUTE .STK-MED ONE Ondansetron HCl 4 mg 08/17/21 12:28 08/17/21 12:33 Ondansetron Hcl 4 Mg/2 Ml Vial IV 08/17/21 12:29 4 mg STAT ONE Administration Ondansetron HCl Confirm 08/17/21 12:31 Ondansetron Hcl 4 Mg/2 Ml Vial Administered 08/17/21 12:32 Dose 4 mg .ROUTE .STK-MED ONE - Progress Progress: improved Air Movement: good Progress Note: 08/17/21 13:16 He is given morphine for symptomatic relief. EKG showed sinus rhythm without any ischemic changes. Patient has point tenderness and pain at the exact same spot with movements and palpation and deep breathing. Does have history of alcohol abuse. Although patient denies any fall or trauma. I have obtained x- rays which showed right eighth rib fracture. This is the exact spot where he is hurting. He has pain medications at home which he is advised to continue. Pain does not seem to be cardiac or pulmonary and has ruled out Nema/hemothorax. Recommended deep breathing exercises and outpatient follow-up. Discussed signs symptoms of worsening needing return to ER which he seems understanding. Stable for discharge. Blood Culture(s) Obtained: No Antibiotics given: No Counseled pt/family regarding: diagnosis, need for follow-up, rad results - Departure Departure Disposition: Home Clinical Impression: Right rib fracture Qualifiers: Encounter type: initial encounter Rib fracture type: single rib Fracture type: closed Qualified Code(s): S22.31XA - Fracture of one rib, right side, initial encounter for closed fracture Condition: Stable Critical Care Time: No Referrals: EULALIO ALLRED MD [Primary Care Provider] - Follow Up with PCP/3 days Instructions: Rib Fracture (DC) Additional Instructions: Take pain medications here which you have at home as recommended. Deep breathing exercises. Follow-up with primary care for reevaluation. Return to ER for worsening pain, difficulty breathing etc.
[2021-08-17 13:22] VITALS: BP 129/67
[2021-08-17 13:24] VITALS: PULSE 78
[2021-08-17 14:03] VITALS: O2SAT 96
== END 2021-08-17 13:28 | disposition home or self-care (01) ==
LOC: ED 12:00
DX: S22.31XA Fracture of one rib, right side, initial encounter for closed fracture (principal); I13.0 Hypertensive heart and chronic kidney disease with heart failure and stage 1 through stage 4 chronic kidney disease, or unspecified chronic kidney disease; I50.9 Heart failure, unspecified; N18.30 Chronic kidney disease, stage 3 unspecified; I25.10 Atherosclerotic heart disease of native coronary artery without angina pectoris; Z95.810 Presence of automatic (implantable) cardiac defibrillator; Z72.0 Tobacco use; Z79.891 Long term (current) use of opiate analgesic; Z79.899 Other long term (current) drug therapy
CPT/HCPCS: 36000; 71045; 71100; 93005; 96374; 96375; 99284; 99291; J2270; J2405; L0625

== ENCOUNTER 2021-09-03 10:11 | Emergency (ER) | payer MEDICARE ==
[2021-09-03] MEDS ORDERED: ROCEPHIN 1 Gm-D5w 50 ml Bag** 1 G/50 ML IVPB IV STA (10:17)
[2021-09-03] MEDS ORDERED: Sodium Chloride 0.9% 1000 ML 1,000 ML IV STA (10:17)
[2021-09-03] MEDS ORDERED: Adacel Vial IM ONE (10:18)
[2021-09-03] MEDS ORDERED: Zofran 4 MG/2 ML VIAL IV ONE (10:19)
[2021-09-03] MEDS ORDERED: Zofran 4 MG/2 ML VIAL ONE (10:22)
[2021-09-03] MEDS ORDERED: Hydromorphone 1 mg/ml Injection ONE ×5 (10:22→14:55)
[2021-09-03] MEDS ORDERED: Hydromorphone 1 mg/ml Injection IV ONE ×5 (10:22→15:02)
[2021-09-03] MEDS ORDERED: ROCEPHIN 1 Gm-D5w 50 ml Bag** 1 G/50 ML IVPB IV ONE (10:34)
[2021-09-03] MEDS ORDERED: Sodium Chloride 0.9% 1000 ML 1,000 ML ONE (10:34)
[2021-09-03] MEDS ORDERED: TENIVAC VIAL IM ONE (10:35)
--- NOTE | 2021-09-03 10:35 | ERPHSYRPT ---
- History of Present Illness Time Seen by Provider: 09/03/21 10:29 Source: patient Exam Limitations: no limitations Physician History: Patient is a 56-year-old male who presents with a complaint of an injury to his left middle finger. He was feeding wood into a wood splitter or log splitter and suffered the injury to the distal phalanx of the left middle finger. He has no other injury he does complain of some pain. His tetanus is not up-to-date. He does have a pacemaker in place and is on aspirin and Plavix for anticoagulation. Occurred: just prior to arrival Method of Injury: incised (From log splitter) Quality: aching, throbbing Severity of Pain-Max: severe Severity of Pain-Current: moderate Extremities Pain Location: 3rd finger: left (He has injury to the distal phalanx of the left middle finger which basically has avulsed all of the soft tissue the bone does appear to be pretty much intact only a small portion of the distal tuft is missing) Modifying Factors: Improves With: movement, pain medication Associated Symptoms: none Allergies/Adverse Reactions: etodolac Allergy (Verified 09/03/21 10:34) gadopentetic acid [From Magnevist] Allergy (Verified 09/03/21 10:34) Iodinated Contrast Media Allergy (Verified 09/03/21 10:34) Home Medications: ALPRAZolam [Alprazolam] 1 mg PO TID 01/28/20 [History] Fenofibrate,Micronized 145 mg* [Tricor 145 MG] 145 mg PO DAILY 01/28/20 [History] Hydrocodone/Acetaminophen [Hydrocodon-Acetaminoph 7.5-325] 7.5 mg PO UD 01/28/20 [History] Lisinopril 10 mg [Zestril 10 MG] 10 mg PO DAILY 01/28/20 [History] Multivit with Minerals/Lutein [Cerovite Senior Tablet] 1 each PO DAILY 01/28/20 [History] Niacin [Niacin ER] 1,000 mg PO HS 01/28/20 [History] Pantoprazole Sodium [Protonix] 40 mg PO DAILY 01/28/20 [History] Spironolactone 25 mg [Aldactone 25 MG] 25 mg PO DAILY 01/28/20 [History] carvediloL [Carvedilol] 25 mg PO BID 01/28/20 [History] Hx Tetanus, Diphtheria Vaccination/Date Given: Yes Hx Influenza Vaccination/Date Given: No Hx Pneumococcal Vaccination/Date Given: No Travel Risk - Vaccine Status Have you recieved a Covid-19 vaccination: No - Past Medical History Pertinent Past Medical History: Yes Neurological History: No Pertinent History ENT History: No Pertinent History Cardiac History: Congestive Heart Failure, Coronary Artery Disease, Hypertension, Myocardial Infarction ([place]), Other Respiratory History: CHF Endocrine Medical History: No Pertinent History Musculoskeletal History: No Pertinent History GI Medical History: GI Bleed, Pancreatitis History: Dialysis, Renal Disease, Other Psycho-Social History: Anxiety Male Reproductive Disorders: No Pertinent History Other Medical History: stage III kidney disease ;PACEMAKER ET DIFIBRILATOR PLACED IN 2008 - updated 2017 - Past Surgical History Past Surgical History: Yes Neuro Surgical History: No Pertinent History Cardiac: Cardiac Catheterization, Internal Defibrillator, Pacemaker Respiratory: No Pertinent History Gastrointestinal: No Pertinent History Genitourinary: No Pertinent History Musculoskeletal: No Pertinent History Male Surgical History: No Pertinent History Other Surgical History: heart cath x 2 - Social History Smoking Status: Current every day smoker How long have you smoked: years Exposure to second hand smoke: Yes Alcohol Use: Socially Drug Use: none Patient Lives Alone: No Significant Family History: no pertinent family hx, heart disease - Nursing Vital Signs Nursing Vital Signs: Initial Vital Signs Temperature 97.8 F 09/03/21 10:35 Pulse Rate 89 09/03/21 10:35 Respiratory Rate 18 09/03/21 10:35 Blood Pressure 154/96 09/03/21 10:35 O2 Sat by Pulse Oximetry 96 09/03/21 10:35 Pain Scale Pain Intensity 10 - Physical Exam General Appearance: moderate distress Eyes, Ears, Nose, Throat Exam: normal ENT inspection, moist mucous membranes Neck Exam: supple, full range of motion Cardiovascular/Respiratory Exam: chest non-tender, no respiratory distress Back Exam: normal inspection, normal range of motion Shoulder Exam: normal inspection, non-tender Elbow/Forearm Exam: normal inspection, non-tender Wrist Exam: normal inspection, non-tender Hand Exam: laceration (There is a severe soft tissue injury to the distal phalanx of the left middle finger the bone itself is still present the joint appears to be intact the soft tissue from the joint and the fingernail all are missing.), nail injury (The nail and the nailbed are missing), No normal inspection Mental Status Exam: alert, oriented x 3 Skin Exam: laceration (Laceration soft tissue injury left middle finger distal phalanx) SpO2 Interpretation: normal O2 Delivery: Room Air - Course Nursing assessment & vital signs reviewed: Yes - Radiology Exams Left Hand X-ray Interpretation: Other (There is avulsion injury severe to the distal phalanx left middle finger there is also a slight bony tuft amputation.) Ordered Tests: Active Orders 24 hr Category Date Time Status HAND (MINIMUM 3 VIEWS) Stat Exams 09/03/21 10:16 Completed Medication Summary Generic Name Dose Route Start Last Admin Trade Name Freq PRN Reason Stop Dose Admin Sodium Chloride 1,000 mls @ 999 mls/hr 09/03/21 10:17 09/03/21 10:42 Sodium Chloride 0.9% 1000 Ml IV 09/03/21 11:17 999 mls/hr .Q1H1M STA Administration Discontinued Medications Generic Name Dose Route Start Last Admin Trade Name Freq PRN Reason Stop Dose Admin Diphtheria/Tetanus/Acell Pertussis 0.5 ml 09/03/21 10:18 09/03/21 10:44 Tdap --Diph,Pertuss(Acell),Tet Vac/Pf 0.5 Ml Vial IM 09/03/21 10:19 0.5 ml .ONCE ONE Administration Hydromorphone HCl 1 mg 09/03/21 10:22 09/03/21 10:33 Hydromorphone 1 Mg/1ml Inj 1 Mg/Ml Syringe IV 09/03/21 10:23 1 mg STAT ONE Administration Hydromorphone HCl Confirm 09/03/21 10:22 Hydromorphone 1 Mg/1ml Inj 1 Mg/Ml Syringe Administered 09/03/21 10:23 Dose 1 mg .ROUTE .STK-MED ONE Hydromorphone HCl Confirm 09/03/21 10:42 Hydromorphone 1 Mg/1ml Inj 1 Mg/Ml Syringe Administered 09/03/21 10:43 Dose 1 mg .ROUTE .STK-MED ONE Hydromorphone HCl 1 mg 09/03/21 10:56 Hydromorphone 1 Mg/1ml Inj 1 Mg/Ml Syringe IV 09/03/21 10:57 STAT ONE Ceftriaxone Sodium/Dextrose 1 g in 50 mls @ 100 mls/hr 09/03/21 10:17 09/03/21 10:42 Rocephin 1 Gm-D5w 50 Ml Bag IV 09/03/21 10:46 100 mls/hr STAT STA 100 mls/hr Administration Sodium Chloride Confirm 09/03/21 10:34 Sodium Chloride 0.9% 1000 Ml Administered 09/03/21 10:35 Dose 1,000 mls @ ud .ROUTE .STK-MED ONE Ceftriaxone Sodium/Dextrose Confirm 09/03/21 10:34 Rocephin 1 Gm-D5w 50 Ml Bag Administered 09/03/21 10:35 Dose 1 g in 50 mls @ ud IV .STK-MED ONE Ondansetron HCl 4 mg 09/03/21 10:19 09/03/21 10:20 Ondansetron Hcl 4 Mg/2 Ml Vial IV 09/03/21 10:20 4 mg STAT ONE Administration Ondansetron HCl Confirm 09/03/21 10:22 Ondansetron Hcl 4 Mg/2 Ml Vial Administered 09/03/21 10:23 Dose 4 mg .ROUTE .STK-MED ONE Tetanus/Diphtheria Toxoids Adsorbed Confirm 09/03/21 10:35 Tetanus And Diphtheria Tox/Pf 0.5 Ml Vial Administered 09/03/21 10:36 Dose 0.5 ml IM .STK-MED ONE - Progress Discussed with Dr.: Other (Dr. Da Ramos) Will see patient in: ED (Dr. Pham asked us to send this patient to the ED at [facility] - Departure Departure Disposition: Transfer Clinical Impression: Partial traumatic amputation of left middle finger through phalanx Condition: Stable Critical Care Time: No Referrals: EULALIO ALLRED MD [Primary Care Provider] - Follow up/PCP as directed
--- NOTE | 2021-09-03 10:50 | XRAY ---
Indication: 3rd finger laceration. Comparison: None 3 view left hand demonstrates distal 3rd finger soft tissue and tuft amputation. No other bony, articular, or soft tissue abnormalities.
[2021-09-03 14:29] VITALS: BP 145/93; PULSE 78; O2SAT 95
== END 2021-09-03 15:11 | disposition short-term general hospital (02) ==
LOC: ED 10:11
DX: S68.623A Partial traumatic transphalangeal amputation of left middle finger, initial encounter (principal); W31.89XA Contact with other specified machinery, initial encounter; I13.0 Hypertensive heart and chronic kidney disease with heart failure and stage 1 through stage 4 chronic kidney disease, or unspecified chronic kidney disease; I50.9 Heart failure, unspecified; N18.30 Chronic kidney disease, stage 3 unspecified; I25.10 Atherosclerotic heart disease of native coronary artery without angina pectoris; Z99.2 Dependence on renal dialysis; Z95.0 Presence of cardiac pacemaker; Z79.01 Long term (current) use of anticoagulants; Z79.891 Long term (current) use of opiate analgesic; Z79.899 Other long term (current) drug therapy; Z72.0 Tobacco use
CPT/HCPCS: 73130; 90471; 90714; 90715; 96374; 96375; 96376; 99285; J0696; J1170; J2405

== ENCOUNTER 2025-04-01 05:54 | Day surgery (SDC) | payer MEDICARE ==
[2025-04-01] MEDS ORDERED: CEFAZOLIN SODIUM ONE (06:06)
[2025-04-01 06:48] LABS: Calcium 9.0 mg/dL (8.4-10.2); Carbon Dioxide 22.0 mmol/L (22-30); Creatinine 1 0.61 mg/dL (0.66-1.25); EST GLOMERULAR FILTRATION RATE 111.3 ML/MIN; Glucose 114.0 mg/dL (74-106); Potassium 4.2 mmol/L (3.5-5.1); SGOT/AST 55.0 U/L (17-59); SGPT/ALT 34.0 U/L (0-50); Total Protein 7.0 g/dL (6.3-8.2)
[2025-04-01] MEDS: DUONEB 0.5-3 MG/3 ml Neb IH ONE (06:49)
[2025-04-01 06:55] LABS: Hematocrit 39.5 % (40.1-51.0); Hemoglobin 13.4 g/dL (13.7-17.5); Mean Corpuscular Hemoglobin 33.8 pg (25.7-32.2); Mean Corpuscular Hgb Concent. 33.9 g/dL (32.3-36.5); Platelet Count 121 x10^3/uL (163-337); Red Blood Count 3.97 x10^6/uL (4.63-6.08); White Blood Count 4.3 x10^3/uL (4.23-9.07)
[2025-04-01] MEDS ORDERED: propofoL IV ONE ×3 (07:03→07:25)
[2025-04-01] MEDS ORDERED: SUBLIMAZE 100 MCG/2 ML ONE (07:03)
[2025-04-01] MEDS ORDERED: Versed 2 MG/2 ML Injection ONE ×2 (07:03→07:12)
[2025-04-01] MEDS ORDERED: Xylocaine 1% Vial 30 ML PF IJ ONE (07:08)
[2025-04-01] MEDS ORDERED: Marcaine Mpf 0.5% Vial 30 Ml ONE (07:08)
[2025-04-01 08:17] VITALS: TEMP 98
[2025-04-01 08:25] VITALS: BP 121/70; PULSE 73; RESP 16; O2SAT 94
--- NOTE | 2025-04-03 12:01 | OP ---
SURGERY DATE/TIME: 04/01/2025 [id number] PREOPERATIVE DIAGNOSES: 1) Traumatic laceration, right great toe. 2) Infection to the level of flexor hallucis longus. 3) Non-pressure ulceration with exposed tendon and necrosis. 4) Right foot pain. POSTOPERATIVE DIAGNOSES: 1) Traumatic laceration, right great toe. 2) Infection to level of flexor hallucis longus. 3) Non-pressure ulceration with exposed tendon and necrosis. 4) Right foot pain. PROCEDURES: 1) Incision and drainage to the level of tendon, single fascial plane, right great toe. 2) Delayed primary closure of wound. SURGEON: Fuad Borjas DPM PUMPER BREWERY: NOAH Dial ANESTHESIA: Monitored anesthesia care with an intraoperative local block consisting of 10 mL of a 1:1 mixture of 1% lidocaine plain and 0.5% bupivacaine plain injected in an hallux block-type fashion. ESTIMATED BLOOD LOSS: Approximately 5 mL. MATERIALS: A 4-0 Monocryl, 3-0 nylon, 2-0 nylon. HEMOSTASIS: Pressure dressing. INJECTABLES: 10 mL of a 1:1 mixture of 1% lidocaine plain and 0.5% bupivacaine plain. INDICATIONS: The patient is a very pleasant 59-year-old male who presented to my service after having slipped off a brick, resulting in a significant laceration to the bottom of his right great toe. The patient has been dealing with this issue for over a week and a half now. He presented to a nurse practitioner who provided mupirocin and doxycycline. However, despite these treatments, the wound edges look to be necrosing with a significant amount of depth to the wound as well as recent signs of infection. From that standpoint, patient has been made aware of all risks, complications, and benefits of surgical intervention at this time including, but not limited to, infection, hematoma, seroma, possibility of delayed wound healing, non-wound healing, and possible need for further surgical intervention at a later date. No guarantees have been provided as to the outcome of surgical intervention. It is at this time we decided to proceed. DESCRIPTION OF PROCEDURE AND FINDINGS: The patient was brought into the operating room and placed on the operating room table in the supine position. At this time, monitored anesthesia care was administered until the patient was adequately sedated. A digital block was performed of the right great toe, utilizing 10 mL of a 1:1 mixture of 1% lidocaine plain and 0.5% bupivacaine plain. After this took effect, a combination of 15 blade pickups, curettes and rongeurs were utilized to debride the wound, which did extend to the level of the flexor hallucis longus tendon. However, this was not disrupted. From that standpoint, no exposure of bone and only a single fascial plane was encountered. This was resected of any necrotic tissue and nonviable tissue, as well as any infected-appearing tissue. This was cleansed utilizing 1000 mL of Bactisure and then 1000 mL of sterile saline. Following this, after assessing wound margin ends, a 4-0 Monocryl was utilized to coapt the subcutaneous skin edges in a simple interrupted buried-type fashion. Then, 3-0 nylon was utilized in an [id number] type stitch type fashion in order to coapt the skin edges. A 2-0 nylon was then utilized in a simple interrupted-type fashion to take a significant amount of the tension off the site. It was noted that there was some soft tissue loss, so in order to get this to heal, there was a small amount of tension that needed to be applied to the skin edges. This being said, copious amounts of sterile saline were utilized to flush the surgical site. A dressing consisting of a splint to the first toe, pulling this into a plantarflexed orientation to get tension off the site, and a dressing consisting of Betadine, Adaptic, 4 x 4, Kerlix, ABD and Imer was applied to the patient's right lower extremity. The patient was then provided a boot, a dressing. The patient was then reversed from anesthesia and returned to the postoperative anesthesia care unit with vital signs stable and vascular status intact. The patient handled the anesthesia as well as the procedure without significant complication. Postoperative orders as indicated in the patient's discharge chart.
== END 2025-04-01 08:51 | disposition home or self-care (01) ==
LOC: SDC 05:54
PROVIDERS: ATTEND Podiatrist Foot & Ankle Surgery
DX: S91.111A Laceration without foreign body of right great toe without damage to nail, initial encounter (principal); M79.671 Pain in right foot; L08.9 Local infection of the skin and subcutaneous tissue, unspecified; L02.611 Cutaneous abscess of right foot
CPT/HCPCS: 13160; 28002; 36415; 80053; 85027; 87070; 87075; 93005; 94640; A6260